=== PATIENT | male | born 2000 | race Caucasian/White ===

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

== ENCOUNTER 2021-05-21 15:33 | Emergency (ER) | payer SELFPAY ==
[2021-05-21 16:40] VITALS: BP 109/83; PULSE 84; RESP 18; TEMP 37; O2SAT 97; BMI 25.2
--- NOTE | 2021-05-21 17:02 | HMH.EDUTC ---
[facility] [place] Dis[place] Clinical Impression: Strep sore throat Disposition: Home, Self-Care Condition on Discharge: Good Instructions: DI for Strep Throat Additional Instructions: Start antibiotics today be sure to take it as ordered with the full length of time although you should start feeling better in 24-48 hours. Change toothbrush and toothpaste 24-48 hours after starting antibiotics Tylenol or Motrin as needed for fever or pain Encourage fluids, water, Gatorade, Powerade, try cold fluids, popsicles, ice cream will make it feel better You are contagious for 24 hours. Avoid kissing anyone, no eating or drinking after anyone. You are contagious. Follow-up the ER for new or worsening symptoms or no noticeable improvement over the next 24-48 hours. Follow-up with PCP this week. Prescriptions: Azithromycin [Zithromax 250mg tab] 250 mg PO DIRECTED #6 tab Prescription Printed Referrals: Provider,Referral, MD [Primary Care Provider] - Forms: Work/School Release Time of Disposition: 17:07 Medical Decision Making - Johnson Inquiry Pt receiving controlled substance: No [facility] [place] HPI - General Chief complaint: [facility] Stated complaint: sore throat,cough muscle ache,maxim Time Seen by Provider: 05/21/21 17:02 Mode of Arrival: Ambulatory Source of Information: Patient Limitations: No Limitations - History of Present Illness Provider Complaint: 20 yr old male presnets for sore throat for 3 days - Related Data Previous Rx's Medication Instructions Recorded Azithromycin [Zithromax 250mg 250 mg PO DIRECTED #6 tab 05/21/21 tab] Allergies Allergy/AdvReac Type Severity Reaction Status Date / Time No Known Allergies Allergy Verified 07/01/20 19:10 [facility] History - Hepatitis A Screen Attestation statement:: This patient has been screened for Hepatitis A risk factors. I have reviewed the patient's past medical history: Yes - Social History Smoking Status: Current every day smoker Tobacco Type: e-cigarettes # Packs/Day (cigarettes): 0 Alcohol Intake: never Occupational Status: employed ROS Obtained: Yes Systems reviewed as appropriate & no additional complaints - Constitutional Constitutional: Reports system reviewed and no additional complaints, except as docu, Denies fatigue - Eyes Eyes: Reports system reviewed and no additional complaints, except as docu, Denies dry eyes - ENT Ears, Nose, Mouth, and Throat: Reports system reviewed and no additional complaints, except as docu, Reports sore throat - Cardiovascular Cardiovascular: Reports system reviewed and no additional complaints, except as docu, Denies chest pain - Respiratory Respiratory: Reports system reviewed and no additional complaints, except as docu, Denies cough - Gastrointestinal Gastrointestingal: Reports: system reviewed and no additional complaints, except as docu. Denies: abdominal pain - Genitourinary Male Genitourinary: Reports system reviewed and no additional complaints, except as docu - Musculoskeletal Musculoskeletal: Reports system reviewed and no additional complaints, except as docu, Denies joint pain - Integumentary/Breasts Skin/Breast: Reports system reviewed and no additional complaints, except as docu, Denies rash - Neurologic Neurologic: Reports system reviewed and no additional complaints, except as docu, Denies dizziness - Endocrine Endocrine: Reports system reviewed and no additional complaints, except as docu, Denies cold intolerance - Hematologic/Lymphatic Henatologic/Lymphatic: Reports system reviewed and no additional complaints, except as docu, Denies easy bruising - Allergic/Immunologic Allergic/Immunologic: Reports system reviewed and no additional complaints, except as docu, Denies itchy eyes Physical Exam - General General appearance: alert, in no apparent distress - Head Head exam: atraumatic, normocephalic, normal inspection - Eye Eye exam: Present: n
[2021-05-21 17:08] VITALS: BP 109/83; PULSE 84; RESP 18; TEMP 37; O2SAT 97
[2021-05-21 17:12] LABS: UTC Strep Screen (Rapid) Positive (Negative)
== END 2021-05-21 17:16 | disposition home or self-care (01) ==
PROVIDERS: Emergency Provider Nurse Practitioner Family
DX: J02.0 Streptococcal pharyngitis (principal)
CPT/HCPCS: 87880; 99202; G0463

== ENCOUNTER 2021-05-26 12:58 | Emergency (ER) | payer SELFPAY ==
[2021-05-26 13:14] VITALS: BP 158/86; PULSE 132; RESP 16; TEMP 36.9; O2SAT 98; BMI 25.9
--- NOTE | 2021-05-26 13:28 | HMH.EDGENADL ---
ED Disposition Clinical Impression: Urticaria Disposition: Home, Self-Care Condition on Discharge: Good Instructions: DI for Hives Additional Instructions: Take [id number] Benadryl 25 mg every 6 hours for 3 days. Prednisone and Pepcid for 3 days. Additional instructions for ALLERGIC REACTION: See your physician as soon as possible for further evaluation. Return immediately if severe intolerable rash or itching, trouble breathing, or faintness. Prescriptions: Famotidine [Pepcid 20mg Tablet] 20 mg PO BID 5 Days #10 tab Transmission Status: Pending to [facility] predniSONE [Prednisone 20mg Tab] 20 mg PO BID #10 tab Transmission Status: Pending to [facility] Referrals: Nhi Cordon APRN [Primary Care Provider] - - Critical Care Critical Care Time: No Attestation: On 05/26/21, the high probability of a clinically significant, sudden or life threatening deterioration of the following system(s) required my full and direct attention, intervention and personal management. The time I documented below is in addition to time spent performing reported procedures but includes the following listed in this critical care notation. Medical Decision Making - Johnson Inquiry Pt receiving controlled substance: No Vital Signs: 05/26/21 13:14 05/26/21 13:30 Temperature 98.5 F Temperature Source Oral Pulse Rate 104 H Pulse Rate [Radial] 132 H Respiratory Rate 16 22 Blood Pressure 113/84 Blood Pressure [Right Arm] 158/86 H Blood Pressure Mean 93 Blood Pressure Mean [Right Arm] 110 Blood Pressure Position [Right Arm] Sitting 02 Sat by Pulse Oximetry 98 100 Oxygen Delivery Method Room Air Orders (Tests/Meds): ED MEDICATIONS Generic Name Dose Route Start Last Admin Trade Name Freq PRN Reason Stop Dose Admin Sodium Chloride 8 ml 05/26/21 13:41 Sodium Chloride 0.9% 10ml Vial IV 06/25/21 13:40 NEEDED PRN dilute pepcid Discontinued Medications Generic Name Dose Route Start Last Admin Trade Name Freq PRN Reason Stop Dose Admin Diphenhydramine HCl 25 mg 05/26/21 13:41 Diphenhydramine 50mg/Ml Vial IV 05/26/21 13:42 ONCE ONE Famotidine 20 mg 05/26/21 13:41 Famotidine 20mg/2ml Vial IV 05/26/21 13:42 ONCE ONE Methylprednisolone Sodium Succinate 125 mg 05/26/21 13:46 Methylprednisolone Sod Succ 125mg Vial IV 05/26/21 13:47 ONCE ONE General Adult HPI - General Chief complaint: Skin/Abscess/Foreign Body Stated complaint: rash and swelling, Time Seen by Provider: 05/26/21 13:40 Mode of Arrival: Ambulatory Limitations: No Limitations Description of Symptoms (Recalled from ER Triage Doc. by RN): to ed per pvt car with c/o rash, itching, hand swelling starting lastnight. pt denies any new medications, soaps, lotions. redness to hands and forearms noted. pt denies any sob. - History of Present Illness HPI narrative: States he had onset of a pruritic rash last night. Feels like hands are swelling. The rash was most prominent over his hands and upper extremities but he itched all over his whole body. He describes a raised welts, which are now gone. Denies shortness of breath, lips or throat swelling. No known exposures. He has an allergy to wasp stings but was not stung by anything. No new medications. No medications taken at home for his current symptoms. No [id number] medications recently taken. - Related Data Previous Rx's Medication Instructions Recorded Azithromycin [Zithromax 250mg 250 mg PO DIRECTED #6 tab 05/21/21 tab] Famotidine [Pepcid 20mg Tablet] 20 mg PO BID 5 Days #10 tab 05/26/21 predniSONE [Prednisone 20mg 20 mg PO BID #10 tab 05/26/21 Tab] Allergies Allergy/AdvReac Type Severity Reaction Status Date / Time No Known Allergies Allergy Verified 07/01/20 19:10 [facility] History - Hepatitis A Screen Drug use history?: No High risk sexual behaviors?: No History
[2021-05-26 13:30] VITALS: BP 113/84; PULSE 104; RESP 22; O2SAT 100
[2021-05-26 14:00] VITALS: BP 115/68; PULSE 91; RESP 23; O2SAT 98
[2021-05-26 14:17] VITALS: BP 118/83; PULSE 106; RESP 19; O2SAT 100
[2021-05-26 14:18] VITALS: BP 118/83; PULSE 97; RESP 18; O2SAT 97
[2021-05-26 14:31] VITALS: BP 113/74; PULSE 91; RESP 16; TEMP 36.6; O2SAT 98
== END 2021-05-26 14:33 | disposition home or self-care (01) ==
PROVIDERS: Emergency Provider Emergency Medicine; PCP Nurse Practitioner Family
DX: L50.9 Urticaria, unspecified (principal); F17.290 Nicotine dependence, other tobacco product, uncomplicated
CPT/HCPCS: 96374; 96375; 99281

== ENCOUNTER 2023-05-05 11:26 | Emergency (ER) | payer SELFPAY ==
[2023-05-05 11:40] VITALS: BP 139/84; PULSE 86; RESP 19; TEMP 36.8; O2SAT 100; BMI 27.9
--- NOTE | 2023-05-05 11:56 | EXP.UTC ---
Discharge Plan Disposition Patient Disposition: Home, Self-Care Condition: Good Referrals Follow up/Referrals: Provider,Referral, [Primary Care Provider] - See instructions Activity Restrictions/Add. Instructions Additional Instructions/Restrictions: *Monitor Temp, Over the counter Motrin or Tylenol as directed/as needed Tylenol every 4 hours and Motrin every 6 hours (as long as your family doctor has told you that you can take it) for fever or pain. and straight to ER if unable to lower temp less than 101.0 after medication given *Warm salt water gargles may help to soothe the throat *Throat Lozenges? *Warm fluids like tea with honey may help to soothe the throat? *Sleep elevated *Humidifier/Vaporizer Your throat swab was sent for culture. Those results are typically sent to your primary care. Be sure to follow up in 2-3 days with your family doctor/primary care physician if no improvement so they can review those result and treat if necessary. If you don?t have a primary care doctor, I recommend you get one but in the mean time, you will have to return to a walk in clinic Follow up IMMEDIATELY for new or worsening symptoms or no Noticeable improvement over the next 48-72 hours. 911 for difficulty breathing or swallowing You were tested for today for Upper Respiratory Panel with COVID19 your test result should be back in the next 24 hours You may check your results on the [facility] My Health Portal if your COVID or Flu is positive you must Quarantine for 5 days Clinical Impressions Clinical Impression: Viral upper respiratory infection Instructions Patient Instructions: Sore Throat, DI for Viral Upper Respiratory Infection -- Adult Discharge ED Provider: Delores Ruiz [facility] [place] General Stated complaint: sore throat Mode of Arrival: Ambulatory Source of Information: Patient Limitations: No Limitations Time Seen by Provider: 05/05/23 11:56 Description of Symptoms (Recalled from Triage Doc. by RN): PATIENT C/O SORE THROAT AND FLUSHED FACE SINCE THIS MORNING HEENT Symptoms (Recalled from RN notes): Yes Resp Symptoms (Recalled from RN notes): No Skin Symptoms (Recalled from RN notes): No MS Symptoms (Recalled from RN notes): No Functional Status (Recalled from RN notes): WNL History of Present Illness Provider Complaint: Patient states that he started yesterday with sore scratchy throat and nasal congestion States that he went to work and they sent him home said his face looked a little flush and his throat looked like it had blisters on it they was worried that he may have strep throat States that also COVID has been going around at his work place Related Data Allergies Allergy/AdvReac Type Severity Reaction Status Date / Time No Known Allergies Allergy Verified 07/01/20 19:10 Worker's Comp Is this a Worker's Comp case?: No PFSH PFS Disclaimer: The information contained in this section may have been updated after the patient was seen, as this information can be updated by other users. Medical History (Updated 05/05/23 @ 11:59 by Delores Ruiz APRN) No significant past medical history Social History Smoking Status: Current every day smoker tobacco type: e-cigarettes alcohol intake: never current occupational status: employed Travel in the last 8 weeks: None ROS Obtained: Yes All systems reviewed & no additional complaints except as documented and Yes Systems reviewed as appropriate & no additional complaints except as documented Constitutional Constitutional: Reports system reviewed and no additional complaints, except as documented, Reports as per HPI and Reports fever(s) ENT Ears, Nose, Mouth, and Throat: Reports system reviewed and no additional complaints, except as documented, Reports as per HPI, Reports nasal congestion, Reports nasal discharge and Reports sore throat Cardiovascular Cardiovascular: Reports system reviewed and no additional complaints
[2023-05-05 11:58] LABS: UTC Strep Screen (Rapid) Negative (Negative)
[2023-05-05 12:04] VITALS: BP 139/84; PULSE 86; RESP 19; TEMP 36.8; O2SAT 100
== END 2023-05-05 12:08 | disposition home or self-care (01) ==
PROVIDERS: Emergency Provider Nurse Practitioner
DX: R07.0 Pain in throat (principal); J06.9 Acute upper respiratory infection, unspecified; R09.81 Nasal congestion; B34.9 Viral infection, unspecified; F17.290 Nicotine dependence, other tobacco product, uncomplicated; Z20.822 Contact with and (suspected) exposure to COVID-19
CPT/HCPCS: 87635; 87880; 99212; 99213; G0463